=== PATIENT | male | born 1970 | race Hispanic/Latino ===

== ENCOUNTER 2019-11-03 13:26 | Emergency (ER) | payer SELFPAY ==
[2019-11-03] MEDS ORDERED: IBUPROFEN 600 MG TAB PO ONE (14:09)
[2019-11-03] MEDS ORDERED: ACETAMINOPHEN 325 MG TAB PO ONE (14:09)
[2019-11-03 14:10] VITALS: BP 117/91
--- NOTE | 2019-11-03 14:11 | Emergency Department Report ---
Chief Complaint: Extremity Injury, Lower Stated Complaint: (L) ANKLE PAIN FROM FALL Time Seen by Provider: 11/03/19 14:10 - HPI History of Present Illness: 49 y/o m p/w left ankle pain swellign s/p inversion injury + lateral malleular tenderness xr pain pain meds ft reassess Vital Signs 11/03/19 14:08 Temperature 97.9 F Pulse Rate 76 Respiratory 18 Rate Blood Pressure 117/91 O2 Sat by Pulse 99 Oximetry - Exam Vital Signs: Vital Signs 11/03/19 14:08 Temperature 97.9 F Pulse Rate 76 Respiratory 18 Rate Blood Pressure 117/91 O2 Sat by Pulse 99 Oximetry MSE screening note: Focused history and physical exam performed. Due to findings the following was ordered: ED Disposition for MSE Condition: Stable
--- NOTE | 2019-11-03 14:49 | XRay Report ---
LEFT ANKLE HISTORY: Pain and swelling. COMPARISON: None. TECHNIQUE: 3 views of the left ankle obtained. FINDINGS: Bones: No fracture or dislocation. Joint spaces: Maintained. Soft tissues: Moderate soft tissue swelling, slightly greater on the lateral aspect. No soft tissue a ir or foreign body. Additional findings: None. IMPRESSION: 1. No significant bone or joint abnormality. 2. Nonspecific soft tissue swelling. Signer Name: Clyde Ralph MD Signed: 11/03/2019 2:44 PM Workstation Name: [id number]
--- NOTE | 2019-11-03 15:09 | Emergency Department Report ---
ED Lower Extremity HPI - General Chief Complaint: Extremity Injury, Lower Stated Complaint: (L) ANKLE PAIN FROM FALL Time Seen by Provider: 11/03/19 14:10 Source: patient Mode of arrival: Ambulatory Limitations: No Limitations - History of Present Illness Initial Comments: 49 YO MALE COMES TO ER WITH L ANKLE PAIN AND SWELLING. HE IS AMBULATORY. HE IS SP INVERSION INJURY WITH LATERAL MALL SWELLING. - Related Data Allergies Allergy/AdvReac Type Severity Reaction Status Date / Time No Known Allergies Allergy Unverified 11/03/19 13:31 ED Review of Systems ROS: Stated complaint: (L) ANKLE PAIN FROM FALL Other details as noted in HPI Comment: All other systems reviewed and negative ED Past Medical Hx - Past Medical History Previous Medical History?: No - Surgical History Past Surgical History?: No - Family History Family history: no significant - Social History Smoking Status: Never Smoker Substance Use Type: None ED Physical Exam - General Limitations: No Limitations General appearance: alert, in no apparent distress - Head Head exam: Present: atraumatic, normocephalic - Eye Eye exam: Present: normal appearance - ENT ENT exam: Present: mucous membranes moist - Neck Neck exam: Present: normal inspection - Respiratory Respiratory exam: Present: normal lung sounds bilaterally. Absent: respiratory distress - Cardiovascular Cardiovascular Exam: Present: regular rate, normal rhythm. Absent: systolic murmur, diastolic murmur, rubs, gallop - GI/Abdominal GI/Abdominal exam: Present: soft, normal bowel sounds - Rectal Rectal exam: Present: deferred - Extremities Exam Extremities exam: Present: normal inspection - Expanded Lower Extremity Exam Left Upper Leg exam: Present: normal inspection Knee exam: Present: normal inspection Lower Leg exam: Present: normal inspection Ankle exam: Present: tenderness, swelling, ecchymosis Foot/Toe exam: Present: normal inspection Gait: Positive: observed and normal - Back Exam Back exam: Present: normal inspection - Neurological Exam Neurological exam: Present: alert, oriented X3 - Psychiatric Psychiatric exam: Present: normal affect, normal mood - Skin Skin exam: Present: warm, dry, intact, normal color. Absent: rash ED Course Vital Signs 11/03/19 14:08 Temperature 97.9 F Pulse Rate 76 Respiratory 18 Rate Blood Pressure 117/91 O2 Sat by Pulse 99 Oximetry ED Lower Extremity MDM - Radiology Data Radiology results: report reviewed, image reviewed interpreted by me: NO FX NO FX - Medical Decision Making XRAY NO FX MEDICATED FOR PAIN CRUTCHES- NEUROVASC INTACT WITH DP AND PT BILATERAL PLUS 2 LAT MAL SWELLING AND BRUISING DC HOME WITH [facility] TREATMENT AND ORTHO FOLLOW UP Vital Signs 11/03/19 14:08 Temperature 97.9 F Pulse Rate 76 Respiratory 18 Rate Blood Pressure 117/91 O2 Sat by Pulse 99 Oximetry - Differential Diagnosis RO FX Critical care attestation.: If time is entered above; I have spent that time in minutes in the direct care of this critically ill patient, excluding procedure time. ED Disposition Clinical Impression: Ankle sprain Disposition: DC-01 TO HOME OR SELFCARE Is pt being admited?: No Does the pt Need Aspirin: No Condition: Stable Instructions: Ankle Sprain (ED) Additional Instructions: REST ICE ELEVATE CRUTCHES MOTRIN OR TYLENOL FOR PAIN OVER THE COUNTER- FOLLOW UP WITH DR RUBY REFERRAL BELOW Referrals: NATHAN RUBY MD [Staff Physician] - 3-5 Days Time of Disposition: 15:15
== END 2019-11-03 15:30 | disposition home or self-care (01) ==
LOC: ED 13:26
DX: S93.492A Sprain of other ligament of left ankle, initial encounter (principal); X58.XXXA Exposure to other specified factors, initial encounter; Y93.89 Activity, other specified; Y92.89 Other specified places as the place of occurrence of the external cause; Y99.8 Other external cause status

== ENCOUNTER 2019-11-09 13:44 | Emergency (ER) | payer SELFPAY ==
[2019-11-09 13:56] VITALS: BP 133/87
--- NOTE | 2019-11-09 16:44 | Emergency Department Report ---
ED Lower Extremity HPI - General Chief Complaint: Extremity Injury, Lower Stated Complaint: LT FOOT INJURY/INCREASE URINATION Time Seen by Provider: 11/09/19 15:29 Source: patient Mode of arrival: Ambulatory Limitations: No Limitations - History of Present Illness Initial Comments: This is a 49-year-old male presents to the emergency room with left ankle pain and swelling for 1 week. Patient states he was seen in the emergency room and had a x-ray 6 days ago and told to follow-up but unable. Patient states he endorsed another fall earlier today and not sure which way his ankle twisted. States swelling and pain is about the same. He is able to ambulate but worsening pain. He denies numbness or tingling, weakness, or warmth to area. MD Complaint: ankle injury (Left ankle) Onset/Timin -: week(s) Injury: Ankle: Left Type of Injury: unknown Place: home Severity: moderate Severity scale (0 -10): 7 Improves With: NSAID Worsens With: weight bearing, movement Context: fall Associated Symptoms: swelling, ambulatory. denies: snap/pop sensation, numbness, tingling Treatments Prior to Arrival: NSAIDS - Related Data Allergies Allergy/AdvReac Type Severity Reaction Status Date / Time No Known Allergies Allergy Unverified 11/03/19 13:31 ED Review of Systems ROS: Stated complaint: LT FOOT INJURY/INCREASE URINATION Other details as noted in HPI Constitutional: denies: chills, fever Respiratory: denies: cough, shortness of breath, wheezing Cardiovascular: denies: chest pain, palpitations Gastrointestinal: denies: abdominal pain, nausea, diarrhea Musculoskeletal: arthralgia (Left ankle pain). denies: back pain, joint swelling Skin: denies: rash, lesions Neurological: denies: headache, weakness, paresthesias Psychiatric: denies: anxiety, depression ED Past Medical Hx - Past Medical History Previous Medical History?: No - Surgical History Past Surgical History?: No - Social History Smoking Status: Never Smoker Substance Use Type: None ED Physical Exam - General Limitations: No Limitations General appearance: alert, in no apparent distress, obese - Respiratory Respiratory exam: Present: normal lung sounds bilaterally. Absent: respiratory distress - Cardiovascular Cardiovascular Exam: Present: regular rate, normal rhythm. Absent: systolic murmur, diastolic murmur, rubs, gallop - GI/Abdominal GI/Abdominal exam: Present: soft, normal bowel sounds - Expanded Lower Extremity Exam Left Hip exam: Present: normal inspection, full ROM Upper Leg exam: Present: normal inspection, full ROM Knee exam: Present: normal inspection, full ROM Lower Leg exam: Present: normal inspection, full ROM Foot/Toe exam: Present: full ROM (Pain with from), tenderness (Tenderness and swelling to lateral malleolus), swelling. Absent: abrasion, laceration, ecchymosis, deformity, crepidus, dislocation, erythema, amputation, puncture wound, foreign body, calcaneal tenderness, tenderness at base of 5th metatarsal, nail avulsion Neuro vascular tendon exam: Present: no vascular compromise Gait: Positive: observed and normal - Neurological Exam Neurological exam: Present: alert, oriented X3, normal gait - Psychiatric Psychiatric exam: Present: normal affect, normal mood - Skin Skin exam: Present: warm, dry, intact, normal color. Absent: rash ED Course Vital Signs 11/09/19 13:54 Temperature 98.6 F Pulse Rate 85 Respiratory 16 Rate Blood Pressure 133/87 O2 Sat by Pulse 98 Oximetry ED Lower Extremity MDM - Medical Decision Making 49-year-old male complaining of left ankle pain. Patient was examined by me. Patient is nontoxic appearing and stable. Vitals are normal. Reviewed x-ray report from November 03, 2019, soft tissue swelling with no bone or joint abnormality. Denies follow-up. Given history, exam, and work-up, there is low suspicion for fracture patient ambulating with minimal pain throughout ER. No signs of obvious deformity. Continue NSAIDs. A stirrup splint applied to the left lower extremity. Instructed to continue using crutches for ambulation. Referral to orthopedic surgeon for continued care. He was given strict return instructions. Patient discharged with prompt follow-up with primary care physician and orthopedics. Critical care attestation.: If time is entered above; I have spent that time in minutes in the direct care of this critically ill patient, excluding procedure time. ED Disposition Clinical Impression: Left lateral ankle pain Ankle sprain Qualifiers: Encounter type: subsequent encounter Involved ligament of ankle: anterior talofibular ligament Laterality: left Qualified Code(s): S93.492D - Sprain of other ligament of left ankle, subsequent encounter Disposition: TO HOME OR SELFCARE Is pt being admited?: No Condition: Stable Instructions: Arthralgia (ED), Ankle Sprain (ED) Additional Instructions: Rest Use ice or heat on affected area for 20 minutes and off for 2 hours. Take ibuprofen, naproxen, or Tylenol every 8 hours as needed for pain. Follow up with Primary Care Provider in 2-3 days. Referrals: NATHAN RUBY MD [Staff Physician] - 3-5 Days [facility] [Provider Group] - 3-5 Days Forms: Work/School Release Form(ED) Time of Disposition: 16:54
== END 2019-11-09 17:44 | disposition home or self-care (01) ==
LOC: ED 13:44
DX: S93.492A Sprain of other ligament of left ankle, initial encounter (principal); W19.XXXA Unspecified fall, initial encounter; Y93.89 Activity, other specified; Y92.89 Other specified places as the place of occurrence of the external cause; Y99.8 Other external cause status